=== PATIENT | female | born 1970 | race Caucasian/White ===

== ENCOUNTER 2024-09-11 16:46 | Emergency (ER) | payer BC, MEDICAID ==
[~2024-09-11] VITALS: Ht 154.9 cm; Wt 60.2 kg
[~2024-09-11 16:46] MED LIST: CYCL-1 PO
[2024-09-11 17:02] VITALS: BP 145/97; PULSE 85; RESP 16; TEMP 98.3; O2SAT 98
[2024-09-11] MEDS: TETanus/Pertussis (Acell)/Diphther VAC/PF (Tdap-Adult) 0.5ml syringe IMVAC ONE (19:22)
== END 2024-09-11 19:41 | disposition home or self-care (01) ==
LOC: ER 16:47
DX: S61.211A Laceration without foreign body of left index finger without damage to nail, initial encounter (principal); Z88.0 Allergy status to penicillin; X58.XXXA Exposure to other specified factors, initial encounter; Y93.89 Activity, other specified; Y92.89 Other specified places as the place of occurrence of the external cause; Y99.8 Other external cause status
CPT/HCPCS: 29130; 90471; 90715; 99283